=== PATIENT | female | born 1975 | race Hispanic/Latino ===

== ENCOUNTER 2021-01-06 20:22 | Observation (INO) | payer BC ==
[~2021-01-06] VITALS: Ht 157.5 cm; Wt 96.6 kg
[2021-01-06 21:00] VITALS: BP 115/72
[2021-01-06] MEDS ORDERED: ACETAMINOPHEN 325 MG TAB PO PRN (21:30)
[2021-01-06] MEDS ORDERED: ONDANSETRON 4MG INJ IVP PRN (21:30)
[2021-01-06] MEDS ORDERED: DEXTROSE 5%-LACTATED RINGERS 1,000 ML IV SCH (21:30)
[2021-01-06] MEDS ORDERED: PNV11TAB5 PO (22:23)
[2021-01-06 23:28] LABS: BASOPHILS % (AUTO) 0.5 % (0.0-5.0); HEMATOCRIT 39.3 % (36-48); LYMPHOCYTES % (AUTO) 34.1 % (21.0-51.0); MEAN CORPUSCULAR HEMOGLOBIN 26.7 pg (27.0-33.0); MEAN CORPUSCULAR HGB CONC 32.6 g/dL (32.0-36.0); MONOCYTES % (AUTO) 7.6 % (3.0-13.0); NEUTROPHILS % (AUTO) 55.5 % (40.0-77.0); PLATELET COUNT (AUTO) 244 K/uL (130-400); RED BLOOD CELL COUNT(AUTO) 4.79 MIL/uL (4.00-5.50); WHITE BLOOD COUNT (AUTO) 9.7 K/uL (4.8-10.8)
[2021-01-06 23:36] VITALS: BP 102/61
[2021-01-07] VITALS (10 sets, daily range): BP systolic 86–112; BP diastolic 53–77
[2021-01-07] MEDS ORDERED: MISOPROSTOL 200 MCG TABLET VG SCH (03:00)
[2021-01-07] MEDS ORDERED: LIDOCAINE PF 100MG/5ML (2%) SYRINGE 5ML ONE (08:09)
[2021-01-07] MEDS ORDERED: DEXAMETHASONE SOD PHOSPHATE 10MG/ML 1ML VIAL ONE (08:09)
[2021-01-07] MEDS ORDERED: MIDAZOLAM HCL 1 MG/ML 2ML VIAL ONE (08:10)
[2021-01-07] MEDS ORDERED: ONDANSETRON 4MG INJ ONE (08:10)
[2021-01-07] MEDS ORDERED: PROPOFOL 10 MG/ML 20ML VIAL IV ONE (08:10)
[2021-01-07] MEDS ORDERED: FENTANYL CITRATE PF 50 MCG/1 ML 2ML VIAL ONE (08:10)
[2021-01-07] MEDS ORDERED: OXYTOCIN 10 UNIT/1ML 10ML VIAL ONE (08:44)
[2021-01-07] MEDS ORDERED: CEFAZOLIN SODIUM 1 GM VIAL ONE (08:44)
[2021-01-07] MEDS ORDERED: IBUP-2070 PO (11:43)
[2021-01-07] MEDS ORDERED: AMMONIA 1 EA AMP IH ONE (12:08)
[2021-01-07] MEDS ORDERED: MISOPROSTOL 200 MCG TABLET ONE (14:54)
== END 2021-01-07 16:45 | disposition home or self-care (01) ==
LOC: EDH 21:17 → WSH 21:21
PROVIDERS: ADMIT Internal Medicine; ATTEND Internal Medicine
DX: O02.1 Missed abortion (principal); Z3A.09 9 weeks gestation of pregnancy
CPT/HCPCS: 36415 ×2; 59820; 76801; 76817; 85025; 86850; 86900; 86901; 96360; 96361; G0378 ×18; J0690; J1100; J2001; J2250; J2405; J2590; J2704; J3010; J3490; J7030